=== PATIENT | female | born 2000 | race Asian ===

== ENCOUNTER 2018-04-03 10:14 | Emergency (ER) | payer OTHER ==
[~2018-04-03] VITALS: Ht 165.1 cm; Wt 52.2 kg
[2018-04-03 10:25] VITALS: BP 110/67; TEMP 98.6
== END 2018-04-03 11:00 | disposition home or self-care (01) ==
LOC: ED 10:14
DX: T67.5XXA Heat exhaustion, unspecified, initial encounter (principal)